=== PATIENT | female | born 1955 | race Two or more races ===

== ENCOUNTER 2025-06-27 07:00 | Day surgery (SDC) | payer OTHER ==
[2025-06-21 10:54] VITALS: BP 116/67
[~2025-06-27] VITALS: Ht 160 cm; Wt 63.5 kg
[~2025-06-27 07:00] MED LIST: ADULT LOW DOSE81 M1; CIPROFLOXACIN IN 5 % DEXTROSE 200 MG/100 ML PIGGYBAG IV SCH; LOSARTAN POTAS100 MG; MAXFE CAPLET1 EAC1; ROSUVASTATIN CA20 MG; SYNJARDY 12.5-1 EAC1
[2025-06-27] MEDS ORDERED: LIDOCAINE HCL 1%/EPINEPHRINE 20ML VIAL IJ ONE (07:07)
[2025-06-27] MEDS ORDERED: CIPROFLOXACIN IN 5 % DEXTROSE 400 MG/200 ML PIGGYBAG IV ONE (07:21)
[2025-06-27] MEDS ORDERED: PERCOCET 5-3251 EACH PO (07:49)
[2025-06-27] MEDS ORDERED: NEURONTIN300 MG PO (07:50)
[2025-06-27] MEDS ORDERED: CELECOXIB200 MG PO (07:50)
[2025-06-27] MEDS ORDERED: PROTONIX40 MG PO (07:50)
[2025-06-27] MEDS ORDERED: BUPIVACAINE HCL IN DEXTROSE/PF 2 ML AMPUL IJ ONE (08:15)
[2025-06-27] MEDS ORDERED: SUGAMMADEX SODIUM 200 MG/2 ML VIAL IV ONE (09:03)
== END 2025-06-27 12:40 | disposition home or self-care (01) ==
LOC: CIR.AMB 07:00
PROVIDERS: ATTEND Surgery
DX: K80.10 Calculus of gallbladder with chronic cholecystitis without obstruction (principal)